=== PATIENT | female | born 1970 | race Two or more races ===

== ENCOUNTER 2024-11-09 17:05 | Emergency (ER) | payer OTHER ==
[~2024-11-09] VITALS: Ht 165.1 cm; Wt 63.5 kg
[2024-11-09] MEDS ORDERED: THIAMINE HCL 100 MG/ML 2 ML VIAL IV ONE (18:45)
[2024-11-09] MEDS ORDERED: 0.9 % SODIUM CHLORIDE 1,000 ML IV ONE (18:45)
[2024-11-09] MEDS ORDERED: hydrOXYzine PAMOATE 25 MG CAPSULE PO ONE (18:45)
[2024-11-09 19:49] LABS: HEMATOCRIT 41.2 % (36.0-45.00); HEMOGLOBIN 14.3 g/dL (12.0-15.00); MEAN CELL VOLUME 98.2 fL (80.00-100.00); MEAN CORPUSCULAR HEMOGLOBIN 34.2 pg (27.00-32.0); MEAN CORPUSCULAR HGB CONC 34.9 g/dl (32.0-36.0); PLATELET COUNT 69 K/uL (150-450); RED BLOOD COUNT 4.19 M/uL (4.00-6.00); RED CELL DISTRIBUTION WIDTH 17.1 % (11.5-14.5)
[2024-11-09 19:56] LABS: ALBUMIN 4.3 gm/dL (3.4-5.0); BILIRUBIN TOTAL 2.06 mg/dL (0.3-1.2); BILIRUBIN,CONJUGATED 0.84 mg/dL (0.0-0.2); BILIRUBIN,UNCONJUGATED 1.22 mg/dL (0.0-0.6); CALCIUM 9.7 mg/dL (8.5-10.1); CREATININE SERUM 0.87 mg/dL (0.55-1.02); GFR 67.85; GLOBULINA 4.7 G/DL (2.4-3.5); POTASSIUM 3.52 mEq/L (3.5-5.1)
== END 2024-11-09 22:11 | disposition home or self-care (01) ==
LOC: ER 17:05
PROVIDERS: General Practice
DX: R55 Syncope and collapse (principal); K74.69 Other cirrhosis of liver